=== PATIENT | male | born 1955 ===

== ENCOUNTER → 2022-11-12 | Outpatient (CLI) | payer OTHER | END | disposition home or self-care (01) | LOC: RX STUDY 08:12 | PROVIDERS: ATTEND Internal Medicine Gastroenterology | DX: K44.9 Diaphragmatic hernia without obstruction or gangrene (principal); K57.32 Diverticulitis of large intestine without perforation or abscess without bleeding; K57.30 Diverticulosis of large intestine without perforation or abscess without bleeding; K31.89 Other diseases of stomach and duodenum; K22.89 Other specified disease of esophagus; K63.5 Polyp of colon; J98.11 Atelectasis; R93.3 Abnormal findings on diagnostic imaging of other parts of digestive tract; D50.9 Iron deficiency anemia, unspecified ==